=== PATIENT | female | born 1985 | race Two or more races ===

== ENCOUNTER 2021-10-20 12:24 | Emergency (ER) | payer OTHER ==
[~2021-10-20] VITALS: Ht 160 cm; Wt 58.1 kg
--- NOTE | 2021-10-20 12:55 | NUR ---
[employer] AT BED SIDE
--- NOTE | 2021-10-20 13:15 | NUR ---
patient not able toprovide urine sample.made aware
[2021-10-20 13:16] LABS: BASOPHILS % (AUTO) 0.6 % (0.0-2.0); EOSINOPHILS % (AUTO) 1.4 % (0.0-6.0); HEMATOCRIT 43 % (33-45); HEMOGLOBIN 14.3 g/dL (11.5-14.8); LYMPHOCYTES # (AUTO) 1.7 K/uL (0.8-4.8); LYMPHOCYTES % (AUTO) 21.8 % (20.0-44.0); MEAN CORPUSCULAR HGB CONC 34 g/dl (31.0-36.0); MEAN CORPUSCULAR VOLUME 85 fL (82-100); MONOCYTES # (AUTO) 0.4 K/uL (0.1-1.30); MONOCYTES % (AUTO) 5.3 % (2.0-12.0); NEUTROPHILS # (AUTO) 5.6 K/uL (1.8-8.9); NEUTROPHILS % (AUTO) 70.9 % (43.0-81.0); PLATELET COUNT (AUTO) 159 K/uL (150-450); RED BLOOD CELL COUNT(AUTO) 5.03 MIL/uL (4.0-5.2)
[2021-10-20 13:24] LABS: CALCIUM, SERUM 8.9 mg/dL (8.5-10.1); CREATININE 0.6 mg/dL (0.6-1.3); POTASSIUM 3.8 mmol/L (3.5-5.1)
--- NOTE | 2021-10-20 14:03 | NUR ---
HCG 259 PER LAB
--- NOTE | 2021-10-20 14:06 | NUR ---
PATIENT NOT ABLE TO PROVIDE URINE SAMPLE. MD PEDRO
--- NOTE | 2021-10-20 14:19 | NUR ---
patient not able toprovide urine sample.made aware
[2021-10-20 14:40] VITALS: BP 116/70
--- NOTE | 2021-10-20 14:40 | NUR ---
Patient discharged to home in stable condition. Written and verbal after care instructions given. Patient verbalizes understanding of instruction.
== END 2021-10-20 14:41 | disposition home or self-care (01) ==
LOC: ER 12:30
DX: O46.90 Antepartum hemorrhage, unspecified, unspecified trimester (principal); Z3A.00 Weeks of gestation of pregnancy not specified
CPT/HCPCS: 36415; 76805-TC; 80048-TC; 84702-TC; 85025-TC; 86850-TC